=== PATIENT | male | born 1955 | race Caucasian/White ===

== ENCOUNTER 2016-12-24 15:30 | Outpatient (CLI) | payer OTHER ==
[2016-12-24 16:24] LABS: Mean Platelet Volume 6.4 fL (7.4-10.4); White Blood Cell (WBC) Count 8.5 thou/uL (4.8-10.8)
[2016-12-24 16:32] LABS: PTT 26.4 SEC (22.9-36.1)
[2016-12-24 16:47] LABS: ALT (SGPT) 12 U/L (8-55); AST (SGOT) 18 U/L (5-34); Alkaline Phosphatase 82 U/L (40-150); Anion Gap 13 mmol/L (10-20); BUN (Urea Nitrogen) 17 mg/dL (8.4-25.7); Bilirubin, Total 0.4 mg/dL (0.2-1.2); Calc. Creatinine Clearance 0 mL/min (70-130); Calcium 9.9 mg/dL (7.8-10.44); Carbon Dioxide 28 mmol/L (23-31); Chloride 103 mmol/L (98-107); Estimated GFR-MDRD 69; Globulin 3.3 g/dL (2.4-3.5); Protein, Total 7.8 g/dL (5.8-8.1)
--- NOTE | 2016-12-24 18:01 | RAD ---
CHEST 2 VIEWS: Date: 12/24/16 HISTORY: Preop. COMPARISON: None. FINDINGS: Lungs are clear. No pneumothorax or effusion. Cardiac silhouette and mediastinal contour normal. IMPRESSION: No acute intrathoracic abnormality. POS: [facility]
== END 2016-12-24 15:31 | disposition home or self-care (01) ==
LOC: LABBT 15:30
PROVIDERS: ATTEND Urology
DX: Z01.818 Encounter for other preprocedural examination (principal); R97.20 Elevated prostate specific antigen [PSA]
CPT/HCPCS: 71020; 80053; 81001; 85027; 85610; 85730; 87081; 87086; 93005; 93010

== ENCOUNTER 2017-01-01 07:10 | Day surgery (SDC) | payer OTHER ==
[2016-12-24 15:30] VITALS: BMI 28.8
[2017-01-01] MEDS ORDERED: Levofloxacin 500 mg/D5W 100 ml Premix Bag ONE (09:43)
[2017-01-01] MEDS ORDERED: cefTRIAXone\\ROCEPHIN 1 GM VIAL ONE (09:43)
[2017-01-01] MEDS ORDERED: Sodium Chloride 0.9% 100 ML ONE (09:43)
[2017-01-01] MEDS ORDERED: Propofol 200 MG/20 ML VIAL ONE (10:54)
--- NOTE | 2017-01-01 13:22 | OP ---
PRIMARY CARE PHYSICIAN: Tien Campa M.D. PREOPERATIVE DIAGNOSES: 1. A 61-year-old male with a family history of prostate cancer, elevated PSA 4.5, unremarkable digi tino rectal exam. 2. History of right undescended testis, nonpalpable. POSTOPERATIVE DIAGNOSES: 1. A 61-year-old male with a family history of prostate cancer, elevated PSA 4.5, unremarkable digi tino rectal exam. 2. History of right undescended testis, nonpalpable. PROCEDURE: Transrectal ultrasound volume study, ultrasound guided needle biopsy 12 core of the pros whitehead. SURGEON: Simin Smith D.O. ANESTHESIA: TIVA. COMPLICATIONS: None apparent. ESTIMATED BLOOD LOSS: Minimal. DISPOSITION: Back to day stay in stable condition. INDICATIONS FOR THE PROCEDURE AND HISTORY: Mr. Flores is a pleasant 61-year-old male with family history of prostate cancer who is referred for elevated PSA. The patient also had history of right undescended testes, never treated with surgery, he has had complete family status with 3 children. His digital rectal exam was grossly unremarkable with no discrete nodules with volume approximately 25 grams. The left testis is unremarkable. Right testis is nonpalpable. He presents today for pr ostate biopsy. Risks and complications including, but not limited to, bleeding, pain, infection, ur osepsis, vasovagal episode was reviewed. As the patient has allergies to LIDOCAINE and LIDODERM, we discussed biopsy under anesthesia. He desired to proceed. DESCRIPTION OF THE PROCEDURE: After an informed consent is signed, the patient is taken to the oper ating room, placed in a lateral decubitus position. TIVA anesthesia was administered. A digital re ctal exam was performed demonstrating no significant nodularity. An ultrasound probe was then passe d uneventfully. We did volume studies at this time which demonstrated that the prostate measured an d urethral length 3.8 cm with 4.36, height 2.3 cm with volume estimated to be 20.7 grams. I did not see any lesions of concern on ultrasound. Using a biopsy needle gun preloaded, we obtained a 12 ne edle core specimens of the prostate in a systematic manner and appropriately labeled. There was min imal blood per rectum after the procedure and he tolerated the procedure well. The patient will be monitored for significant hematuria, blood per rectum component. If stable, we will be discharged p er protocol. He is to finish his Levaquin for a course of 3 days. His followup appointment with me is on next Friday for pathology review.
== END 2017-01-01 12:30 | disposition home or self-care (01) ==
LOC: SDC 07:10
PROVIDERS: ATTEND Urology
PROC: 0VB03ZX Excision of Prostate, Percutaneous Approach, Diagnostic (ICD-10-PCS; principal; 2017-01-01)
DX: C61 Malignant neoplasm of prostate (principal); Q53.10 Unspecified undescended testicle, unilateral; I10 Essential (primary) hypertension; E78.5 Hyperlipidemia, unspecified; Z88.8 Allergy status to other drugs, medicaments and biological substances; Z79.899 Other long term (current) drug therapy; Z82.49 Family history of ischemic heart disease and other diseases of the circulatory system; Z81.8 Family history of other mental and behavioral disorders; Z80.42 Family history of malignant neoplasm of prostate
CPT/HCPCS: 88305; 88341; 88342; J0696; J1956; J2704; J7050

== ENCOUNTER 2017-01-28 11:10 | Outpatient (CLI) | payer OTHER ==
--- NOTE | 2017-01-28 14:13 | CT ---
CT ABDOMEN AND PELVIS WITH AND WITHOUT CONTRAST: Date: 01/28/17 HISTORY: C61, prostate cancer; Z80.42, history of prostate cancer. COMPARISON: CT stone protocol dated 12/17/11. FINDINGS: Lung bases are clear. No pericardial effusion. Multiple hepatic hypodensities are present, similar to the 2012 examination and most likely cysts. Spleen and adrenal glands are unremarkable. The soft tissue density within the mesentery of the prox imal small bowel is similar, mildly worsened with very mild increase in the size of the lymph nodes. Pancreas unremarkable. No hydronephrosis. No filling defect within the calices, renal pelves, ureters, or the urinary bladder. Aortoiliac contour is normal. No pelvic side wall adenopathy. No obturator lymphadenopathy. The left inguinal canal appears normal, although there appears to be a soft tissue density in the right ingu inal canal, similar to the prior examination and represented an inguinal testicle. There appears to be bilateral atrophy of the indirect head of the rectus femoris muscles bilaterally , incompletely evaluated. No periaortic adenopathy. No retroperitoneal adenopathy. There is extensive degenerative disease of the pubic symphysis. IMPRESSION: 1. Mildly progressive soft tissue density of the proximal small bowel mesentery with very mild incr ease in the size of the lymph nodes. Over the course of 5 years, this is suggestive of chronic scler osing mesenteritis. 2. No evidence of metastatic disease in the abdomen or pelvis. 3. Likely a right inguinal testicle. Clinical correlation advised. 4. Numerous hypodensities throughout the liver, too small to characterize, although are similar to the comparison examination and most suggestive of cysts. POS: [facility]
[2017-01-28] MEDS ORDERED: Iopamidol 370 76% 100 ML VIAL ONE (14:20)
== END 2017-01-28 11:11 | disposition home or self-care (01) ==
LOC: CT 11:10
PROVIDERS: ATTEND Urology
DX: C61 Malignant neoplasm of prostate (principal); Q53.10 Unspecified undescended testicle, unilateral; K76.89 Other specified diseases of liver; Z80.42 Family history of malignant neoplasm of prostate
CPT/HCPCS: 74178; 81001; 87086

== ENCOUNTER 2017-02-05 14:24 | Outpatient (CLI) | payer OTHER ==
--- NOTE | 2017-02-05 15:36 | ULT ---
SCROTAL ULTRASOUND: 02/05/17 HISTORY: 61-year-old male with history of right undescended testis. COMPARISON: 01/28/17 Exam includes color and spectral doppler imaging. The left testis measures 3.8 x 1.6 x 2.8 cm. The left epididymis is normal. The right testis is in the inguinal canal and much smaller in size and more heterogeneously hypoechoi c. It measures approximately 2.2 x 0.8 x 1.1 cm. The right epididymis is smaller as well. There is va scular flow documented to both testes. No evidence of testicular torsion. IMPRESSION: Somewhat elongated smaller, slightly more heterogeneously hypoechoic undescended right testis with va scular flow. Normal left testis. No evidence for a left sided hydrocele. POS: [facility]
== END 2017-02-05 14:25 | disposition home or self-care (01) ==
LOC: ULT 14:24
PROVIDERS: ATTEND Urology
DX: Q53.10 Unspecified undescended testicle, unilateral (principal)
CPT/HCPCS: 76870; 93976

== ENCOUNTER 2017-03-24 08:51 | Outpatient (CLI) | payer BC ==
--- NOTE | 2017-03-24 11:11 | MRI ---
MR OF THE PELVIS WITH AND WITHOUT CONTRAST: Indication: History of prostate cancer with biopsy performed on 12-27-16. Technique: Multiplanar, multisequence MR images are obtained of the pelvis with and without contrast. The patient received 20 cc of MultiHance for this examination. FINDINGS: The prostate measures 3.6 x 2.9 x 4.6 cm in its greatest craniocaudad, AP, and mediolateral dimension s respectively. The total prostatic volume is 24.97 cc. No areas of restricted diffusion is seen within the peripheral zone that is suspicious for malignancy . There is some heterogeneous low T2 signal seen within the peripheral zone on the T2 weighted images . There are small encapsulated heterogeneous BPH nodules seen within the transitional zone. Fibromuscul ar stroma appears within normal limits. Seminal vesicles appear within normal limits. The neurovascul ar bundles appear within normal limits. No pathologically enlarged lymph nodes are evident. No bone marrow signal abnormality is evident. Inc idental note is made of 1.6 cm periarticular ganglion seen off the inferior aspect of the left hip. N o free fluid is demonstrated. No abnormal enhancement is grossly evident. There is a undescended test icle involving the distal right aspect of the right inguinal canal with a small fat containing right inguinal hernia. IMPRESSION: 1. PIRADS category 2 - low (clinically significant cancer is unlikely to be present). 2. Undescended right testicle with the testicle see within the distal aspect of the right inguinal ca nal. 3. 1.6 cm periarticular ganglion involving the inferior aspect of the left hip. POS: [facility]
[2017-03-24] MEDS ORDERED: Gadobenate Dimeglumine 529 MG/1 ML (20ML VIAL) ONE (17:36)
== END 2017-03-24 08:52 | disposition home or self-care (01) ==
LOC: TBSIIMAG 08:51
PROVIDERS: ATTEND Urology
DX: C61 Malignant neoplasm of prostate (principal); Q53.112 Unilateral inguinal testis; M67.452 Ganglion, left hip; R35.0 Frequency of micturition
CPT/HCPCS: 36415; 72197; 81003; 82565; 84153; 87086; A9579

== ENCOUNTER 2017-04-08 15:40 | Outpatient (CLI) | payer BC ==
[2017-04-08 16:03] LABS: Hemoglobin 14.7 g/dL (14.0-18.0); Mean Corpuscular HGB CONC 32.8 g/dL (32.0-36.0); Mean Corpuscular Hemoglobin 29.7 pg (27.0-31.0); Mean Corpuscular Volume 90.6 fl (80.0-94.0); Mean Platelet Volume 6.7 fL (7.4-10.4); Platelet Count 367 thou/uL (130-400); RBC Distribution Width 12.5 % (11.5-14.5); Red Blood Cell (RBC) Count 4.93 mill/uL (4.70-6.10); White Blood Cell (WBC) Count 10.8 thou/uL (4.8-10.8)
[2017-04-08 16:13] LABS: Prothrombin Time 13.2 SEC (12.0-14.7)
[2017-04-08 16:25] LABS: ALT (SGPT) 21 U/L (8-55); AST (SGOT) 25 U/L (5-34); Albumin 4.7 g/dL (3.4-4.8); Alkaline Phosphatase 100 U/L (40-150); Anion Gap 15 mmol/L (10-20); BUN (Urea Nitrogen) 12 mg/dL (8.4-25.7); Bilirubin, Total 0.4 mg/dL (0.2-1.2); Calc. Creatinine Clearance 0 mL/min (70-130); Carbon Dioxide 28 mmol/L (23-31); Chloride 102 mmol/L (98-107); Estimated GFR-MDRD 61; Globulin 2.5 g/dL (2.4-3.5); Glucose 93 mg/dL (80-115); Potassium 4.6 mmol/L (3.5-5.1); Protein, Total 7.2 g/dL (5.8-8.1); Sodium 140 mmol/L (136-145)
--- NOTE | 2017-04-08 23:46 | EKG ---
Test Reason : JAQUELINE Blood Pressure : / mmHG Vent. Rate : 082 BPM Atrial Rate : 082 BPM P-R Int : 150 ms QRS Dur : 102 ms QT Int : 378 ms P-R-T Axes : 053 104 015 degrees QTc Int : 441 ms Normal sinus rhythm Rightward axis Borderline ECG When compared with ECG of 24-DEC-2016 15:44, QRS axis Shifted right Confirmed by Denis CHE ([id number]) on 04/08/2017 11:46:28 PM Referred By: GLORIA Confirmed By:Denis CHE
== END 2017-04-08 15:41 | disposition home or self-care (01) ==
LOC: LABBT 15:40
PROVIDERS: ATTEND Urology
DX: Z01.818 Encounter for other preprocedural examination (principal); C61 Malignant neoplasm of prostate
CPT/HCPCS: 80053; 85027; 85610; 85730; 93005; 93010

== ENCOUNTER 2017-04-11 15:43 | Outpatient (CLI) | payer BC | END 2017-04-11 15:44 | disposition home or self-care (01) | LOC: LABBT 15:43 | PROVIDERS: ATTEND Urology | DX: Z01.818 Encounter for other preprocedural examination (principal); C61 Malignant neoplasm of prostate; Z88.6 Allergy status to analgesic agent | CPT/HCPCS: 86850; 86900; 86901 ==

== ENCOUNTER 2017-04-14 05:49 | Inpatient (IN) | payer BC ==
[2017-04-08 16:06] VITALS: BMI 27.4
[2017-04-14] MEDS ORDERED: CEFOXITIN SODIUM SLOW IVP SCH (06:15)
[2017-04-14] MEDS ORDERED: Midazolam HCl 2 mg/2 ml Vial ONE (06:25)
[2017-04-14] MEDS ORDERED: Dexamethasone 4 mg/ml Vial ONE ×2 (06:25)
[2017-04-14] MEDS ORDERED: Fentanyl 100 MCG/2 ML VIAL ONE ×4 (06:25→16:11)
[2017-04-14] MEDS ORDERED: Levofloxacin 500 mg/D5W 100 ml Premix Bag ONE (06:42)
[2017-04-14] MEDS ORDERED: Sodium Chloride 0.9% 10 ML ONE (06:55)
[2017-04-14] MEDS ORDERED: ceFOXitin 1 GM VIAL ONE ×2 (09:31→09:32)
[2017-04-14] MEDS ORDERED: Rocuronium Bromide 50 MG/5 ML VIAL ONE (10:29)
[2017-04-14] MEDS ORDERED: Bupivacaine PF 0.5% 30 ML VIAL ONE (11:59)
[2017-04-14] MEDS ORDERED: Labetalol 100 MG/20 ML MDV ONE (12:03)
[2017-04-14] MEDS ORDERED: Ondansetron HCl/PF 4 MG/2 ML Vial ONE (12:03)
[2017-04-14] MEDS ORDERED: Glycopyrrolate 0.2 MG/ML 5 ML SYRINGE ONE (12:03)
[2017-04-14] MEDS ORDERED: Propofol 200 MG/20 ML VIAL ONE (12:03)
[2017-04-14] MEDS ORDERED: PHENYLEPHRINE-NS 100 MCG/ML 10 ML SYRINGE ONE (12:03)
[2017-04-14] MEDS ORDERED: B & O ONE (14:43)
[2017-04-14] MEDS ORDERED: Labetalol HCl 100 MG/20 ML VIAL ONE (15:12)
[2017-04-14] MEDS ORDERED: Lidocaine 1% PF 5 ML VIAL ONE (15:12)
[2017-04-14] MEDS ORDERED: Oxybutynin 5 MG TAB PO PRN (15:14)
[2017-04-14] MEDS ORDERED: Ondansetron HCl/PF 4 MG/2 ML Vial IVP PRN ×2 (15:14→15:19)
[2017-04-14] MEDS ORDERED: hydrALAZINE 20 MG/ML VIAL SLOW IVP PRN ×2 (15:14)
[2017-04-14] MEDS ORDERED: Mag-Al 1200 mg/1200 mg/30 ML UDCUP PO PRN (15:14)
[2017-04-14] MEDS ORDERED: Acetaminophen 500 MG TAB PO PRN (15:14)
[2017-04-14] MEDS ORDERED: HYDROcodone/Acetaminophen 10/325 mg Tablet PO PRN ×2 (15:14)
[2017-04-14] MEDS ORDERED: cefTRIAXone\\ROCEPHIN 1 GM in Sodium Chloride 0.9% 100 ML IVPB SCH (15:15)
[2017-04-14] MEDS ORDERED: Promethazine HCl 25 MG/ML VIAL SLOW IVP PRN (15:19)
[2017-04-14] MEDS ORDERED: Promethazine HCl 25 MG/ML VIAL IM PRN (15:19)
[2017-04-14] MEDS ORDERED: Morphine 5 MG/ML SYRINGE SLOW IVP PRN ×2 (15:47→15:48)
[2017-04-14 16:22] LABS: #Lymphocytes 0.4 thou/uL (1.20-3.40); #Monocytes 0.6 thou/uL (0.11-0.59); #Neutrophils 18.9 thou/uL (1.40-6.50); %Basophils 0.1 % (0.0-1.0); %Eosinophils 0.1 % (0.0-10.0); %Lymphocytes 2.2 % (21.0-51.0); %Monocytes 2.9 % (0.0-10.0); %Neutrophils 94.7 % (42.0-75.0); Hemoglobin 14.1 g/dL (14.0-18.0); Mean Corpuscular HGB CONC 33.5 g/dL (32.0-36.0); Mean Corpuscular Hemoglobin 30.4 pg (27.0-31.0); Mean Corpuscular Volume 90.7 fl (80.0-94.0); Mean Platelet Volume 7.1 fL (7.4-10.4); Platelet Count 361 thou/uL (130-400); RBC Distribution Width 12.3 % (11.5-14.5); Red Blood Cell (RBC) Count 4.66 mill/uL (4.70-6.10); White Blood Cell (WBC) Count 19.9 thou/uL (4.8-10.8)
[2017-04-14 16:39] LABS: Anion Gap 15 mmol/L (10-20); BUN (Urea Nitrogen) 16 mg/dL (8.4-25.7); Calc. Creatinine Clearance 63 mL/min (70-130); Calcium 8.9 mg/dL (7.8-10.44); Carbon Dioxide 22 mmol/L (23-31); Chloride 103 mmol/L (98-107); Estimated GFR-MDRD 49; Glucose 180 mg/dL (80-115); Potassium 4.7 mmol/L (3.5-5.1); Sodium 135 mmol/L (136-145)
[2017-04-14] MEDS ORDERED: cefTRIAXone\\ROCEPHIN 1 GM, Syringe 0.4 ML in Sterile Water 9.6 ML SLOW IVP SCH (17:00)
[2017-04-14] MEDS: Sodium Chloride 0.9% 1,000 ML IV SCH (18:49)
[2017-04-14] MEDS: Famotidine/PF 20 mg/2ml Vial SLOW IVP SCH (21:10)
[2017-04-14] MEDS: Docusate 100 MG CAP PO SCH (21:10)
--- NOTE | 2017-04-15 00:39 | OP ---
DATE OF PROCEDURE: 04/14/2017 PREOPERATIVE DIAGNOSIS: A 62-year-old male with clinical T1c prostate cancer, Jerrod sum 3+3, 4/12 cores positive. POSTOPERATIVE DIAGNOSIS: A 62-year-old male with clinical T1c prostate cancer, Jerrod sum 3+3, 4/12 cores positive. PROCEDURE: Robotic-assisted laparoscopic radical prostatectomy. SURGEON: Simin Smith D.O. MANUAL LATHE MACHINIST: Chris Mensees M.D. ANESTHESIA: General. IV FLUIDS: 2200 mL. EBL: 50 mL. COMPLICATIONS: None apparent. DISPOSITION: To the recovery room in stable condition. DRAINS: A circular drain to left lower quadrant x1, 18 [place] 10 mL Burgess with 15 mL insufflated with sterile water. INDICATIONS FOR THE PROCEDURE AND HISTORY: Mr. Flores is a 62-year-old male with family history of prostate cancer. He underwent a prostate biopsy demonstrating prostate volume 20 grams with Jerrod's sum 3+3, 4/12 cores positive. He has been fully informed regarding various treatment options and desired to proceed with a robotic-assisted laparoscopic radical prostatectomy and possible conversion to open. He has zero percent lymph node probability; therefore lymph node dissection will not be performed. The patient and desire to proceed with non-nerve sparing prostatectomy. Risks and complications including, but not limited to bleeding, pain, infection, urosepsis , injury to adjacent organs such as major vessels, bony prominences, rectal, ureteral injury requiring secondary procedure. Possible urinary incontinence requiring secondary procedure was reviewed. The patient is in full understanding of non-nerve sparing impotence. Questions were encouraged and answered and he desires to proceed without reservation. DESCRIPTION OF THE PROCEDURE: After an informed consent is signed, the patient is taken to the operating room, placed in the supine position and general anesthesia was administered. Bilateral Albin hoses, SCDs, and broad-spectrum antibiotics were provided. The patient was then placed in steep Trendelenburg, 20 degrees in low lithotomy position,with all pressure points padded and protected at all times. Chest straps were placed to minimize patient from sliding on the robotic table. A 16 [place] Burgess catheter was inserted under sterile condition. We used a Veress needle entry at the umbilicus and pneumoperitoneum was achieved to 15 mmHg. A semicircular skin incision was made just inferior to the umbilicus and our 12mm camera port was placed. Inspection of the abdomen demonstrated no evidence of bowel/vascular injury. There were some adhesions of the colon on the left side. The remainder of the ports were placed under direct vision: 5 mm system port, 15 mm port, 11 mm assistant project manager port was placed under right side. Left port was placed 8 mm 2. The robot was then docked and procedure started. The bowel contents were then retracted cephalad. We then approached the prostate in a posterior fashion approach. Approximately 1.5 cm anterior and superior to the rectal reflection, we made an incision at the peritoneal reflection. The bilateral vas was dissected with sharp dissection. His seminal vesicles were very prominent. Seminal vesicles were completely divided using sharp and blunt dissection using bipolar and monopolar. We then obtained a great plane in Denonvilliers fascia towards the apex of the prostate. We then placed a Surgicel in the pericolic gutter and proceeded to perform mobilization of the bladder. The medial umbilical ligaments were identified, lateral just to this we opened peritoneum, to the edge of the vas bilaterally. The bladder was dropped successfully and the pubic arch was identified. The loose areolar tissue was then jumped bluntly and sharply developing pubic arch. The superficial dorsal vein complex and areolar tissue was bluntly developed with monopolar and bipolar cautery dissection. The endopelvic fascia was then opened with monopolar scissors. There was some oozing in the right lateral pedicle with some adherence of the elevator fascia; however, we were able to dissect this completely laterally on both sides successfully. We then divided our puboprostatic ligaments dropping the dorsal vein complex. Using tri-stapler robotic stapler, the dorsal vein complex was divided using aleisha. The dorsal vein divided. We then proceeded to develop prostatovesicle junction. A semicircular incision was made in the mid prostate. The fibroareolar tissue the prostate was sent as a separate specimen. The bladder neck was developed and the urethra was identified and transected with cold scissors. The posterior lip of the urethral plate was then divided. The prostatovesical junction was then completely divided, delivering the seminal vesicles to the anterior aspect of the incision. The lateral pedicles of the prostate were divided with a vessel sealer to the level of the mid prostate. From the mid to apex of the prostate using sharp dissection, the rectum was rendered free from the apex of the prostate. The urethra was then identified and isolated from the rectourethralis muscle completely, the urethra was developed and divided with cold scissors. With the prostate completely freed, this was placed in the right pericolic gutter with the seminal vesicle. A Sal stitch with 2-0 Vicryl SH needle Sal stitch was placed in the periurethral muscle to the edge of the bladder neck. We then performed our anastomosis with 2-0 V-Loc stitch in a continuous fashion. A final 18 [place] 10 mL Burgess catheter passed without any issues and 15 mL was insufflated with no evidence of leak on testing the catheter. At this time, FloSeal was placed at the area of the anastomosis and a circular drain was placed through 8 mm robot ports. I specimen including the prostate, SV, portions of the vas was deposited into the Endopouch bag placed through our 11 mm port. The string of the Endopouch was then subsequently passed into our camera port. Using a Gerardo-Sharri needle, our 15 mm and 11 mm port sites were closed under direct visualization. Subcuticular stitch using 4-0 Monocryl was closed skin incision. Dermabond was then placed. Before closing our fascia , specimen was delivered through EndoCatch to our camera port and the specimen delivered through the camera port by making our incision slightly larger. The fascia was closed with 2-0 Vicryl in a [id number] fashion. All incisions at the skin site was closed with 4-0 Monocryl in a subcuticular fashion.. He tolerated the procedure well and transported to the recovery room in stable condition. B+O suppository was placed, with no gross blood per rectum noted. Patient extubated, transferred to recovery room in stable condition. B[facility]K
[2017-04-15 04:39] LABS: #Lymphocytes 0.6 thou/uL (1.20-3.40); #Monocytes 1.3 thou/uL (0.11-0.59); %Eosinophils 0.2 % (0.0-10.0); %Lymphocytes 4.3 % (21.0-51.0); %Neutrophils 85.5 % (42.0-75.0); Hemoglobin 12.8 g/dL (14.0-18.0); Mean Corpuscular HGB CONC 33.5 g/dL (32.0-36.0); Mean Corpuscular Hemoglobin 30.4 pg (27.0-31.0); Mean Corpuscular Volume 90.7 fl (80.0-94.0); Mean Platelet Volume 6.9 fL (7.4-10.4); Platelet Count 277 thou/uL (130-400); RBC Distribution Width 12.2 % (11.5-14.5); White Blood Cell (WBC) Count 12.9 thou/uL (4.8-10.8)
[2017-04-15 04:48] LABS: Anion Gap 10 mmol/L (10-20); BUN (Urea Nitrogen) 13 mg/dL (8.4-25.7); Calc. Creatinine Clearance 85 mL/min (70-130); Calcium 8.2 mg/dL (7.8-10.44); Carbon Dioxide 27 mmol/L (23-31); Chloride 102 mmol/L (98-107); Estimated GFR-MDRD 69; Glucose 118 mg/dL (80-115); Potassium 4.4 mmol/L (3.5-5.1); Sodium 135 mmol/L (136-145)
[2017-04-15] MEDS: Sodium Chloride 0.9% 1,000 ML IV SCH (04:58)
[2017-04-15] MEDS: Docusate 100 MG CAP PO SCH ×2 (08:02→20:45)
[2017-04-15] MEDS: Lisinopril 20 MG TAB PO SCH (08:02)
[2017-04-15] MEDS: Famotidine/PF 20 mg/2ml Vial SLOW IVP SCH ×2 (08:03→20:45)
[2017-04-15] MEDS: Pravastatin Sodium 20 MG TAB PO SCH (08:03)
[2017-04-15] MEDS: Amlodipine 5 MG TAB PO SCH (08:03)
--- NOTE | 2017-04-15 08:19 | PRG ---
DATE OF SERVICE: 04/15/2017 INPATIENT PROGRESS NOTE SUBJECTIVE: The patient is feeling well, has no discomfort has not required pain medication since surgery. PHYSICAL EXAMINATION: VITAL SIGNS: Stable. He is afebrile, currently 98, 84, 18, 126/75. I's and O' s 2400 in and 1940 out. He has positive 460 mL, urine output is 1900 mL of clear. ROCHELLE 40 mL over 24 hours, serosanguineous. Oral intake includes 960 mL. HEART: Regular rate. LUNGS: Clear. ABDOMEN: Has diminished bowel sounds, soft, nondistended, nontender. Incisions are clean, dry, and intact. ROCHELLE site is adequately secured. EXTREMITIES: No cyanosis, clubbing or edema. PERTINENT LABORATORY DATA: White count 12, hemoglobin 12.8, platelet 277. Renal function profile is within normal limits. IMPRESSION AND PLAN: Mr. Flores is a 62-year-old male postop day #1, robotic -assisted laparoscopic radical prostatectomy. The patient is clinically stable. Hemoglobin decreased from 14-12.8. I do suspect this has component of hemodilutional factor. He is hemodynamically stable and urine output is clear. If follow up hemoglobin and hematocrit is stable, will initiate Lovenox if urine output remains clear. The patient is to be aggressive out of bed, we will Hep-Lock IV, change to oral antibiotic therapy. Aggressive IS out of bed ambulation. MTDD
[2017-04-15] MEDS ORDERED: FLU VACC QS2017-18 36 mo. & older 0.5 ML SYRINGE IM ONE (09:00)
[2017-04-16 06:18] LABS: #Basophils 0.1 thou/uL (0.0-0.2); #Eosinphils 0.2 thou/uL (0.0-0.7); #Lymphocytes 1.3 thou/uL (1.20-3.40); #Monocytes 1.4 thou/uL (0.11-0.59); #Neutrophils 10.1 thou/uL (1.40-6.50); %Basophils 0.5 % (0.0-1.0); %Eosinophils 1.6 % (0.0-10.0); %Lymphocytes 9.6 % (21.0-51.0); %Neutrophils 77.3 % (42.0-75.0); Hemoglobin 14.1 g/dL (14.0-18.0); Mean Corpuscular HGB CONC 33.1 g/dL (32.0-36.0); Mean Corpuscular Hemoglobin 30.3 pg (27.0-31.0); Mean Corpuscular Volume 91.6 fl (80.0-94.0); Mean Platelet Volume 7.3 fL (7.4-10.4); Platelet Count 315 thou/uL (130-400); RBC Distribution Width 12.5 % (11.5-14.5); Red Blood Cell (RBC) Count 4.66 mill/uL (4.70-6.10)
[2017-04-16 06:27] LABS: Anion Gap 10 mmol/L (10-20); BUN (Urea Nitrogen) 10 mg/dL (8.4-25.7); Calc. Creatinine Clearance 91 mL/min (70-130); Carbon Dioxide 27 mmol/L (23-31); Chloride 105 mmol/L (98-107); Estimated GFR-MDRD 76; Glucose 98 mg/dL (80-115); Potassium 4.2 mmol/L (3.5-5.1); Sodium 138 mmol/L (136-145)
--- NOTE | 2017-04-16 08:06 | PRG ---
DATE OF SERVICE: 04/16/2017 SUBJECTIVE: The patient states he is feeling well, states he is hungry, desires to advance his diet. He has had a bowel movement; however, had 1 episode of nausea with no emesis. PHYSICAL EXAMINATION: VITAL SIGNS: Stable, afebrile. I's and O's; 900 in, 1280 out. Urine output 1200 mL, ROCHELLE 80 mL over 24 hours, mostly serous. ABDOMEN: Soft, nontender, nondistended. There are active bowel sounds present on today's exam. EXTREMITIES: No cyanosis, clubbing or edema. : Burgess catheter, clear elsa. LABORATORY DATA: White blood cell count 13, hemoglobin 14, platelets 215, BNP profile is unremarkable. IMPRESSION AND PLAN: Mr. Flores is a 62-year-old male with clinical T1c Rayle's score 3+3 adenocarcinoma of the prostate, postop day #2, status post robotic assisted laparoscopic radical prostatectomy. will advance his diet to full liquids, will monitor for recurrent nausea. He is doing well. Encourage out of bed. KOBED
[2017-04-16] MEDS: Docusate 100 MG CAP PO SCH ×2 (09:23→21:01)
[2017-04-16] MEDS: Lisinopril 20 MG TAB PO SCH (09:23)
[2017-04-16] MEDS: Pravastatin Sodium 20 MG TAB PO SCH (09:23)
[2017-04-16] MEDS: Amlodipine 5 MG TAB PO SCH (09:23)
[2017-04-16] MEDS: Famotidine 20 MG TAB PO SCH ×2 (09:23→21:01)
[2017-04-17 05:11] VITALS: TEMP 98
[2017-04-17 06:07] LABS: #Basophils 0.1 thou/uL (0.0-0.2); #Eosinphils 0.9 thou/uL (0.0-0.7); #Lymphocytes 1.1 thou/uL (1.20-3.40); #Monocytes 0.9 thou/uL (0.11-0.59); #Neutrophils 5.9 thou/uL (1.40-6.50); %Basophils 0.9 % (0.0-1.0); %Eosinophils 10.4 % (0.0-10.0); %Lymphocytes 12.2 % (21.0-51.0); %Monocytes 10.1 % (0.0-10.0); %Neutrophils 66.5 % (42.0-75.0); Hemoglobin 13.1 g/dL (14.0-18.0); Mean Corpuscular Hemoglobin 31.1 pg (27.0-31.0); Mean Corpuscular Volume 91.4 fl (80.0-94.0); Mean Platelet Volume 6.9 fL (7.4-10.4); Platelet Count 264 thou/uL (130-400); RBC Distribution Width 12.3 % (11.5-14.5); Red Blood Cell (RBC) Count 4.21 mill/uL (4.70-6.10); White Blood Cell (WBC) Count 8.9 thou/uL (4.8-10.8)
[2017-04-17 06:19] LABS: Anion Gap 11 mmol/L (10-20); BUN (Urea Nitrogen) 14 mg/dL (8.4-25.7); Calc. Creatinine Clearance 103 mL/min (70-130); Calcium 8.8 mg/dL (7.8-10.44); Carbon Dioxide 27 mmol/L (23-31); Chloride 106 mmol/L (98-107); Estimated GFR-MDRD 87; Glucose 97 mg/dL (80-115); Sodium 140 mmol/L (136-145)
--- NOTE | 2017-04-17 08:28 | DIS ---
DATE OF ADMISSION: 04/14/2017 DATE OF DISCHARGE: 04/17/2017 DISPOSITION: To home with self-care with good family support. CONDITION: Stable. DISCHARGE MEDICATIONS: Barton 5/325 #50 one to two p.o. q.6-8h. p.r.n. #50, Colace 100 mg 1 p.o. b.i.d. #30 p.r.n., VESIcare 5 mg one p.o. daily #10. followup appointment on Friday04/28/2017 at 8:30 a.m., cystogram to be performed 1 hour prior. BRIEF HOSPITAL COURSE: Mr. Flores is a 62-year-old male with clinical T1c prostate cancer who underwent robotic assisted laparoscopic radical prostatectomy. Surgery was uneventful. His lab parameters as well as renal function were unremarkable. The patient did well, did not require postoperative narcotics. He has passed gas and had a bowel movement yesterday. We did advance his diet yesterday, overnight, he has had no issues. He is clinically stable to be discharged home. His urine output remained stable. His ROCHELLE creatinine was checked prior to removal which was unremarkable. DISCHARGE INSTRUCTIONS: Burgess catheter to leg bag with extension tubing, no kinking or coiling allowed. No heavy lifting or straddling exercise allowed. Disposition as above. [facility]
[2017-04-17] MEDS: Docusate 100 MG CAP PO SCH (09:22)
[2017-04-17] MEDS: Lisinopril 20 MG TAB PO SCH (09:22)
[2017-04-17] MEDS: Pravastatin Sodium 20 MG TAB PO SCH (09:22)
[2017-04-17] MEDS: Famotidine 20 MG TAB PO SCH (09:23)
[2017-04-17] MEDS: Amlodipine 5 MG TAB PO SCH (09:23)
[2017-04-17 09:24] VITALS: BP 143/85
== END 2017-04-17 10:43 | disposition home or self-care (01) | DRG 708 ==
LOC: SURG A 05:49 → SURG B 18:05
PROVIDERS: ADMIT Urology; ATTEND Urology
PROC: 0VT04ZZ Resection of Prostate, Percutaneous Endoscopic Approach (ICD-10-PCS; principal; 2017-04-14)
PROC: 8E0W4CZ Robotic Assisted Procedure of Trunk Region, Percutaneous Endoscopic Approach (ICD-10-PCS; 2017-04-14)
DX: C61 Malignant neoplasm of prostate (principal); I10 Essential (primary) hypertension; Q53.10 Unspecified undescended testicle, unilateral
CPT/HCPCS: 36415; 80048; 82570; 85025; 88305; 88309; 90471; 90682; A4216; G0008; J0694; J0696; J1100; J1956; J2001; J2250; J2405; J2704; J3010; Q2036; S0020; S0028

== ENCOUNTER 2017-04-28 07:13 | Outpatient (CLI) | payer BC ==
--- NOTE | 2017-04-28 10:13 | RAD ---
CYSTOGRAM: HISTORY: Prostate cancer. Prostatectomy. FINDINGS: Approximately 150 cc of water-soluble contrast was instilled into the urinary bladder via the indwell ing Burgess catheter. The bladder demonstrates normal capacity and contour. No evidence of leak. Exc ess contrast was drained. Fluoro time=0.6 minutes. IMPRESSION: No evidence of urinary bladder leak. Status post prostatectomy. Findings were discussed with Dr. Smith at 0830 hours. CODE CR POS: [facility]
[2017-04-28] MEDS ORDERED: ISOVUE-370 76%-LOCM 1 ML ONE (11:17)
== END 2017-04-28 07:14 | disposition home or self-care (01) ==
LOC: RAD 07:13
PROVIDERS: ATTEND Urology
DX: C61 Malignant neoplasm of prostate (principal)
CPT/HCPCS: 51600; 74430

== ENCOUNTER 2018-05-05 07:49 | Outpatient (CLI) | payer BC ==
--- NOTE | 2018-05-05 09:52 | CT ---
CT ABDOMEN AND PELVIS WITH CONTRAST: HISTORY: Prostate cancer, rising PSA. COMPARISON: CT abdomen and pelvis 03/30/2016. FINDINGS: There are multiple sub-5 mm nodules within the right middle lobe and right lower lobe. There is also a nodule in the left lower lobe which is sub 5 mm. No pericardial effusion. Multiple hepatic hypodensities are similar. Chronic small bowel sclerosing mesenteritis is similar. Right inguinal canal density is similar, likely undescended right testicle. The appendix is visualized and is normal. No dilated loops of large or small bowel. No retroperiton eal adenopathy. Kidneys are unremarkable. No pelvic sidewall adenopathy. No internal iliac or external iliac adenop athy. No suspicious osteolytic or osteoblastic lesion. IMPRESSION: 1. Multiple small sub 5 mm pulmonary nodules. These appear slightly dense and may reflect granuloma s as these are similar to the 2017 exam in the lower lobes. Followup CT of the chest in 3-6 months r ecommended. 2. No evidence for metastatic disease within the abdomen or pelvis. 3. Chronic sclerosing mesenteritis. 4. Multiple hepatic hypodensities are similar. POS: [facility]
[2018-05-05] MEDS ORDERED: ISOVUE-370 76%-LOCM 1 ML ONE (09:55)
== END 2018-05-05 07:50 | disposition home or self-care (01) ==
LOC: BICCT 07:49
PROVIDERS: ATTEND Radiology Radiation Oncology
DX: C61 Malignant neoplasm of prostate (principal); R97.21 Rising PSA following treatment for malignant neoplasm of prostate; R91.8 Other nonspecific abnormal finding of lung field; K65.4 Sclerosing mesenteritis; R93.2 Abnormal findings on diagnostic imaging of liver and biliary tract
CPT/HCPCS: 74177; 82565; Q9966

== ENCOUNTER 2018-05-12 10:44 | Outpatient (CLI) | payer BC ==
--- NOTE | 2018-05-12 14:46 | NM ---
NUCLEAR MEDICINE BONE SCAN: HISTORY: Malignant neoplasm of prostate/prostate cancer. Now rising PSA. DOSE: Technetium 99m MDP 31.9 millicuries. FINDINGS: Anterior and posterior whole body delayed images demonstrate areas of increased activity in the right antecubital area, compatible with likely injection site. Areas of increased activity are also seen in the right mandible and right foot, compatible with likely dental extraction and right foot traumat ic or degenerative changes. No definite evidence of activity seen to suggest metastatic disease. The ribs, spine, and pelvis are unremarkable. IMPRESSION: No definite scintigraphic evidence of metastatic disease is seen. POS: [facility]
== END 2018-05-12 10:45 | disposition home or self-care (01) ==
LOC: NM 10:44
PROVIDERS: ATTEND Radiology Radiation Oncology
DX: C61 Malignant neoplasm of prostate (principal); R97.20 Elevated prostate specific antigen [PSA]
CPT/HCPCS: 78306; A9503